=== PATIENT | female | born 1955 ===

== ENCOUNTER 2017-05-04 12:56 | Inpatient (IN) | payer OTHER ==
[~2017-05-04] VITALS: Ht 167.6 cm; Wt 63.0 kg
--- NOTE | ~2017-05-04 | PR ---
[place], [place] PROGRESS NOTE NAME: [id number] UNIT #: [id number] ROOM: 316 DOCTOR: Isabel BLAND,ABDIRIZAK BIRTHDATE: [birth year] DOS: 05/06/2017 SUBJECTIVE: The patient seen and spoke with the staff. Per staff, the patient was keeping on asking for Xanax and Ativan. She did not sleep last night up until 2:00 a.m., but then fell asleep. She is taking her medication regularly and did not have any side effects. The patient was pleasant, cooperative. She was actually in her bed. She talked about not able to sleep. She was indirectly asking for the benzodiazepine that she was getting. I told her that she is not going to get any of the benzos, which is not good for her. She reported poor sleep. I encouraged her to get up from the bed and go to the day area. She was upset when I told her yesterday, but today she seems to acknowledge that and willing to go to the day area. She said that she still feels depressed and feels had passive wish. Denied any side effect from the medication. MENTAL STATUS EXAMINATION: The patient was pleasant and cooperative. Described her mood as "down." Affect was flat. Thought process goal directed. No flight of ideas, loosening of associations. She denied audiovisual hallucination. No delusion or paranoia noted. She had passive wish. Denied any homicidal ideation, intent or plan. Insight and judgment poor to fair. ASSESSMENT: 1. Bipolar disorder, depressed type. 2. Generalized anxiety disorder. PLAN: 1. Continue current medication and care. 2. Continue redirection. 3. Supportive care. ABDIRIZAK BLAND MD CM:ASHLEY [phone] Isabel BLAND 05/07/17 0133 interface
--- NOTE | ~2017-05-04 | DS ---
[place], [place] DISCHARGE SUMMARY NAME: RANDAL VALENCIA UNIT #: [id number] ROOM: 316 DOCTOR: DOROTA BURK BIRTHDATE: [birth year] DOS: 05/18/2017 CHIEF COMPLAINT: "I slept like a baby." HISTORY OF PRESENT ILLNESS: She is a 61-year-old white female who was pink slipped to the Behavioral [facility] Unit from [facility] because she was having suicidal ideation. She does have a long-standing history of mental illness as well as cirrhosis of the liver. She voiced suicidal thoughts at [facility], was taken to [facility] and was stabilized and then sent to the Behavioral Health Unit for further medication management. PAST MEDICAL HISTORY: Includes cirrhosis of the liver, hepatitis B and E, hypertension. She has a history of suicidal ideation and she is a smoker. ALLERGIES: She is allergic to PENICILLIN, IODINE, CODEINE and ACETAMINOPHEN. SUMMARY OF HOSPITAL COURSE: When she came in, her ammonia level was elevated. Her lactulose was increased. It ultimately increased to 40 grams daily and as of today her ammonia level has increased significantly to 49. During her stay, she also complained of some nausea and decreased appetite. She was on Vistaril and she was on Periactin. Those were discontinued and she was started on Remeron to treat the upset stomach and to try and increase her appetite. The Remeron was titrated to 22.5 mg and last night she reports that she slept very well. Her mood and affect are appropriate today. She has voiced no suicidal ideations. MENTAL STATUS AT DISCHARGE: She is alert and oriented. She does have some short term memory gaps. Mood and affect are euthymic and appropriate. She has had no overt audio or visual hallucinations. No delusions. No paranoia. She is experiencing no EPS or TD. DIAGNOSES: Major depressive disorder with suicidal ideation. DISPOSITION: She will be discharged home. Her scripts have been printed and will be sent with her on discharge. She is in psychiatrically stable condition. [place], [place] DISCHARGE SUMMARY NAME: RANDAL VALENCIA UNIT #: [id number] ROOM: 316 DOCTOR: DOROTA BURK BIRTHDATE: [birth year] Dorota Burk, [employer] CM:DISCHARG [phone] DOROTA BURK 05/18/172247 interface
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
--- NOTE | ~2017-05-04 | PR ---
[place], [place] PROGRESS NOTE [facility]: [id number] UNIT #: [id number] ROOM: 316 DOCTOR: Isabel BLAND,ABDIRIZAK BIRTHDATE: [birth year] DOS: 05/08/2017 SUBJECTIVE: The patient seen and spoke with the staff. Per staff, the patient did not sleep at all last night. She was hallucinating. Seems like the Ambien which caused her to hallucinate. The patient was in the day area. She looks tired. She talked about her experience of hallucination and not able to sleep. She said that she is doing good mood-guzman, but sleep is an issue. MENTAL STATUS EXAMINATION: The patient was pleasant, cooperative. Described her mood as "okay." Affect, mood congruent. Thought process goal directed. No flight of ideas, loosening of associations. She denied any auditory or visual hallucination now. No delusions or paranoia noted. She denied suicidal ideation, intent or plan. She also denied homicidal ideation, intent or plan. ASSESSMENT: Bipolar disorder, depressed type. PLAN: 1. I will discontinue her Ambien. 2. I will increase her Zyprexa to 20 mg at night. 3. Continue redirection. 4. Supportive care. ABDIRIZAK BLAND MD CM:ASHLEY [id number] Isabel BLAND 05/08/17 1334 interface
--- NOTE | ~2017-05-04 | PR ---
[place], [place] PROGRESS NOTE [id number] UNIT #: [id number] ROOM: 316 DOCTOR: Isabel BLAND,ABDIRIZAK BIRTHDATE: [birth year] DOS: 05/05/2017 PSYCHIATRIC PROGRESS NOTE SUBJECTIVE: The patient seen and spoke with the staff. Per staff, the patient did not sleep last night at all and reported racing thoughts. She took all of her medication and got p.r.n. Ativan. The patient was in her room. She talked about not sleeping. She did not want any other medication. She denied any side effects. She still had fleeting suicidal thoughts, but no intent or plan. Denied any psychotic symptoms. MENTAL STATUS EXAMINATION: The patient was pleasant, cooperative. Described her mood as "okay." Affect broad range. Thought process goal directed. No flight of ideas, loosening of association. She denied auditory or visual hallucination. No delusion or paranoia noted. She had fleeting suicidal ideation, but no intent or plan. Denied homicidal ideation, intent or plan. Insight and judgment fair. ASSESSMENT: Bipolar disorder, depressed type. PLAN: 1. I will increase Zyprexa to 50 mg at night. 2. Continue other medications. 3. Continue redirection. 4. Supportive care. ABDIRIZAK BLAND MD CM:PNTRANS [id number] Isabel BLAND 05/05/17 1036 interface
--- NOTE | ~2017-05-04 | PR ---
[place], [place] PROGRESS NOTE NAME: [id number] UNIT #: [id number] ROOM: 316 DOCTOR: Isabel BLAND,ABDIRIZAK BIRTHDATE: [birth year] DOS: 05/09/2017 PSYCHIATRIC PROGRESS NOTE SUBJECTIVE: The patient seen and spoke with the staff. Per staff, the patient was hallucinating yesterday. Slept only 4 hours and a very hard to redirect. The patient was pleasant and cooperative. She said that she is feeling better today, but usually she was feeling her head "don't want to stop," speedy all the time. She talked about poor sleep, but denied any auditory or visual hallucination right now. She said that she is feeling better mood guzman, but she cannot stop her mind racing. She denied any side effect from the medication. It should be noted that her labs were drawn and her ammonia level came back normal. MENTAL STATUS EXAMINATION: The patient was pleasant, cooperative. She was alert, oriented to date, month and year. Speech was normal volume and tone. Described her mood as "okay." Affect, mood congruent. Thought process goal directed. No flight of ideas, loosening of association. She denied auditory or visual hallucination. No delusion or paranoia noted. She denied any suicidal ideation, intent or plan. She also denied any homicidal ideation, intent or plan. ASSESSMENT: Bipolar disorder, depressed type. PLAN: 1. I will discontinue her BuSpar. 2. I will start her on clonazepam 0.5 mg at night. 3. I will continue Zyprexa 20 mg at night. 4. Continue redirection. 5. Supportive care. ABDIRIZAK BLAND MD CM:ASHLEY 06 [phone] Isabel BLAND 05/10/171845 interface
--- NOTE | ~2017-05-04 | PR ---
[place], [place] PROGRESS NOTE NAME: RANDAL VALENCIA [facility] #: [id number] UNIT #: [id number] ROOM: 316 DOCTOR: Isabel BLAND,ABDIRIZAK BIRTHDATE: [birth year] DOS: 05/11/2017 SUBJECTIVE: The patient seen and spoke with the staff. Per staff, the patient slept well and coming to the nursing station and asking for anxiety medication, seems to be medication seeking. The patient was pleasant, cooperative. She was in the day area, looks happier to me, but when I asked her how she is doing, she said that she is not doing well. Claims that she did not sleep last night. When I told her that this is not the nurses said, she became upset and she said that nurses were lying. She reports doing well otherwise. Denied depressed mood or hopelessness, but reports being anxious. I discussed with her about the risk of the medication that she was on. She was concerned about sleeping at night. I told her that I will put her on Ambien 5 mg at night as needed. MENTAL STATUS EXAMINATION: The patient was pleasant, cooperative. Described her mood as "okay". Affect, mood congruent. Thought process goal directed. No flight of ideas or loosening of association. She denied auditory or visual hallucination. No delusion or paranoia noted. She denied suicidal ideation, intent or plan. She also denied homicidal ideation, intent or plan. ASSESSMENT: Bipolar disorder, depressed type. PLAN: 1. Continue current medication and care. 2. I will add Ambien 5 mg at night as needed for insomnia. 3. Supportive care. ABDIRIZAK BLAND MD CM:ASHLEY [id number] Isabel BLAND 05/12/17 0536 interface
--- NOTE | ~2017-05-04 | PR ---
[place], [place] PROGRESS NOTE [id number] UNIT #: [id number] ROOM: 316 DOCTOR: Isabel BLAND,ABDIRIZAK BIRTHDATE: [birth year] DOS: 05/13/2017 SUBJECTIVE: The patient seen and spoke with the staff. Per staff, the patient slept only 3 hours and asking for medication and other things in the middle of the night. She took her medication. No other behavioral problems or issues. When I went to the patient's room, she was sleeping. She barely woke up and said that she is doing well. Did not express any concerns to me, seems to be not in any kind of distress. MENTAL STATUS EXAMINATION: The patient was pleasant and cooperative, sleepy. Described her mood as "okay," does not seem to be internally stimulated. Not in any distress, not able to do the full mental status examination as the patient was in deep sleep. ASSESSMENT: Bipolar disorder, depressed type. PLAN: 1. Continue current medications and care. 2. Continue redirection. 3. Encourage activity and groups. ABDIRIZAK BLAND MD CM:ASHLEY [id number] Isabel BLAND 05/13/17 1046 interface
--- NOTE | ~2017-05-04 | PR ---
[place], [place] PROGRESS NOTE NAME[facility] [id number] UNIT #: [id number] ROOM: 316 DOCTOR: Isabel BLAND,ABDIRIZAK BIRTHDATE: [birth year] DOS: 05/12/2017 SUBJECTIVE: The patient seen and spoke with the staff. Per staff, the patient is doing well. No behavioral problems or issues, slept 8 hours per staff, but reportedly the patient claims that she did not sleep well at all. She is medication compliant and med seeking. When I went to see the patient, she was sleeping deep in her room, not able to wake her up and since sleep is an issue for the patient, I did it deliberately . I actually did not want to wake her up also. The patient seems to be breathing and not in any kind of distress. MENTAL STATUS EXAMINATION: Not able to do the mental status examination as the patient was in deep sleep. ASSESSMENT: Bipolar disorder, depressed type. PLAN: 1. Continue current medication and care. 2. Continue redirection. 3. Encourage activity and groups. ABDIRIZAK BLAND MD CM:ASHLEY 27 Isabel BLAND 05/12/17 182 interface
--- NOTE | ~2017-05-04 | PR ---
[place], [place] PROGRESS NOTE [id number] UNIT #: [id number] ROOM: 316 DOCTOR: Isabel BLAND,ABDIRIZAK BIRTHDATE: [birth year] DOS: 05/10/2017 PSYCHIATRIC PROGRESS NOTE SUBJECTIVE: The patient seen and spoke with the staff. Per staff, the patient is doing well and no behavioral problems or issues. Medication compliant and she slept well last night. No psychotic episodes. The patient was pleasant and cooperative. She was in her bed. When I called her name, she woke up and she said that she slept like a baby. She seems very happy. She said that she did not have any psychotic experiences that she had night before. She denied any side effect from the medication, also denied being anxious or depressed. MENTAL STATUS EXAMINATION: The patient was pleasant and cooperative, described her mood as "great." Affect, mood congruent. Thought process goal directed. No flight of ideas or loosening of association. She denied auditory or visual hallucination. No delusion or paranoia noted. She denied suicidal ideation, intent or plan. She also denied any homicidal ideation, intent or plan. Insight and judgment fair. ASSESSMENT: Bipolar disorder, depressed type. PLAN: 1. Continue current medication and care. 2. Continue redirection. 3. Supportive care. 4. Discharge planning. ABDIRIZAK BLAND MD CM:ASHLEY 0744 Isabel BLAND 05/10/17 2317 interface
--- NOTE | ~2017-05-04 | PR ---
[place], [place] PROGRESS NOTE [id number] UNIT #: [id number] ROOM: 316 DOCTOR: Isabel BLAND,ABDIRIZAK BIRTHDATE: [birth year] DOS: 05/07/2017 PSYCHIATRIC PROGRESS NOTE SUBJECTIVE: The patient seen and spoke with the staff. Per staff, the patient is still very somatic, slept 8 hours, took all of her medications. No behavioral problems or issues. The patient looks brighter to me. She was in the day area. When I asked her how she is doing, she complains about poor sleep, even though when I told her that as per nursing staff, she slept all night, she said that she does not remember like that. She denied any other problems or issues. She denied any side effect from the medication. She claims that her mood is a little bit better. MENTAL STATUS EXAMINATION: The patient was pleasant, cooperative, described her mood as "better." Affect, mood congruent. Thought process goal directed. No flight of ideas or loosening of association. She denied auditory or visual hallucination. No delusion or paranoia noted. She denied suicidal ideation, intent or plan. She also denied homicidal ideation, intent or plan. Insight and judgment fair. ASSESSMENT: 1. Bipolar disorder, depressed type. 2. Generalized anxiety disorder. PLAN: 1. I will continue her current Zyprexa and BuSpar. 2. I will increase her Ambien to 10 mg at night as needed for sleep. 3. Continue redirection. 4. Supportive care. ABDIRIZAK BLAND MD CM:ASHLEY [phone] Isabel BLAND 05/08/17 1309 interface
--- NOTE | ~2017-05-04 | PR ---
[place], [place] PROGRESS NOTE NAME[facility] [id number] UNIT #: [id number] ROOM: 316 DOCTOR: BREANNE NAVARRO MD BIRTHDATE: [birth year] DOS: 05/16/2017 CHIEF COMPLAINT: "I didn't sleep well, I don't feel well. I am nauseated." SUMMARY OF THE VISIT: The patient was interviewed as she rested quietly in bed. She reported that she had a fitful night sleep, tossing and turning throughout the night. She does complain of feeling nauseated. The nausea is intermittent and comes and goes throughout the day, that is not related to the presence or absence of food. Mood guzman she continues to complain of being depressed and is flat and blunted. MENTAL STATUS: She is alert and oriented with mild time gaps. Mood does seem to be depressed. Affect is rather flat and blunted. There is no symptom suggestive of hypomania or brittany. There are no overt auditory or visual hallucinations, delusions or paranoia. Memory seems fairly intact. PLAN: I will attempt to simplify her drug regimen. At this point, I will maximize out the dose of Zyprexa from 15 to 20 mg at bedtime. I will discontinue Periactin and hydroxyzine as both seem to be redundant and ineffective. I will add Remeron 15 mg at bedtime, not only as an antidepressant, but as a sleep and appetite aid. Both the Zyprexa and the Remeron have antiemetic properties and should settle her stomach and help decrease some of her nausea. We will engage in individual and novoa milieu activity with the ultimate plan to return home when psychiatrically stable. BREANNE NAVARRO MD CM:PNTRANS 3 BREANNE NAVARRO MD 05/16/17923 interface
[~2017-05-04 12:56] MED LIST: GOOD NEIGHBOR P20 MG PO
[2017-05-04] MEDS ORDERED: ALPRAZOLAM0.5 M3 PO (13:35)
[2017-05-04] MEDS ORDERED: ZOLPIDEM TART5 MG PO (13:36)
[2017-05-04] MEDS ORDERED: PERIACTIN4 MG PO (13:37)
[2017-05-04] MEDS ORDERED: Kenalog 0.5% Cr15 GM T (13:38)
[2017-05-04] MEDS ORDERED: CLARITIN10 MG PO (13:38)
[2017-05-04] MEDS ORDERED: OLANZAPINE10 MG PO (13:39)
[2017-05-04] MEDS ORDERED: ALDACTONE25 M1 PO (13:40)
[2017-05-04] MEDS ORDERED: PROPRANOLOL HCL10 MG PO (13:40)
[2017-05-04] MEDS ORDERED: ESTRACE 0.01%42.5 GM V (13:41)
[2017-05-04] MEDS ORDERED: CONSTULOSE10 GM/151 PO (13:42)
[2017-05-04 15:01] VITALS: BP 107/70
[2017-05-04] MEDS ORDERED: XIFAXAN550 MG PO (15:45)
[2017-05-04 20:00] VITALS: BP 109/66
[2017-05-05 07:09] LABS: BASO # 0.1 10*3/uL (0.0-0.1); BASO % 1.1 % (0.0-1.0); EOS # 0.1 10*3/uL (0.0-0.4); EOS % 2.3 % (1.0-4.0); HEMOGLOBIN 14.3 g/dl (12.0-16.0); LYMPH # 2.3 10*3/uL (1.3-4.4); LYMPH % 40.6 % (27.0-41.0); MEAN CORPUSCULAR HGB 32.4 pg (27.0-31.0); MEAN PLATELET VOLUME 13.7 fl (9.6-12.3); MONO # 0.5 10*3/uL (0.1-1.0); MONO % 8.1 % (3.0-9.0); NEUT # 2.7 10*3/uL (2.3-7.9); NEUT % 47.7 % (47.0-73.0); PLATELET COUNT AUTOMATED 105 10*3/uL (130-400); RED BLOOD COUNT 4.42 10*6/uL (4.10-5.10); WHITE BLOOD COUNT 5.7 10*3/uL (4.8-10.8)
[2017-05-05 07:38] LABS: ALBUMIN 3.6 gm/dl (3.1-4.5); ALKALINE PHOSPHATASE 160 U/L (45-117); BUN 13 mg/dl (7-24); CHLORIDE 109 mmol/L (98-107); CHOLESTEROL 137 mg/dL (<200); CREATININE 0.68 mg/dL (0.55-1.02); HDL CHOLESTEROL 34 mg/dl (40-60); LDL CHOLESTEROL 85 mg/dL (9-159); POTASSIUM 3.8 mmol/L (3.5-5.1); SGOT/AST 42 IU/L (3-35); SGPT/ALT 46 U/L (12-78); SODIUM 143 mmol/L (136-145); TRIGLYCERIDES 89 mg/dl (<150); VLDL CHOLESTEROL 18 mg/dL (6-40)
[2017-05-05 08:28] VITALS: BP 104/87
[2017-05-05 08:33] LABS: VITAMIN D, 25-HYDROXY 24.5 ng/mL (30-100)
[2017-05-05 10:49] LABS: BILIRUBIN NEGATIVE (NEGATIVE); BLOOD TRACE-INTACT (NEGATIVE); CLARITY CLEAR (CLEAR); COLOR YELLOW (YELLOW); GLUCOSE NEGATIVE (NEGATIVE); KETONE NEGATIVE (NEGATIVE); LEUKO ESTERASE NEGATIVE (NEGATIVE); NITRITE NEGATIVE (NEGATIVE); UROBILINOGEN 0.2 E.U./dl (0.2-1.0)
[2017-05-05 11:01] LABS: BACTERIA TRACE
[2017-05-05 19:57] VITALS: BP 102/67
[2017-05-06 08:00] VITALS: BP 124/80
[2017-05-06 20:30] VITALS: BP 136/82
[2017-05-07 10:46] VITALS: BP 130/83
[2017-05-07 20:22] VITALS: BP 150/92
[2017-05-07 21:40] VITALS: BP 126/84
[2017-05-08 03:29] VITALS: BP 147/89
[2017-05-08 08:09] VITALS: BP 104/81
[2017-05-08 08:32] VITALS: BP 110/58
[2017-05-08 20:06] VITALS: BP 110/66
[2017-05-09 08:55] VITALS: BP 109/69
[2017-05-09 20:15] VITALS: BP 110/78
[2017-05-10 07:58] VITALS: BP 100/71; BP 138/62
[2017-05-10 12:23] VITALS: BP 122/78
[2017-05-10 19:47] VITALS: BP 104/69
[2017-05-11 08:01] VITALS: BP 111/68
[2017-05-11 20:11] VITALS: BP 120/71
[2017-05-12 08:07] VITALS: BP 118/68
[2017-05-12 19:56] VITALS: BP 121/74
[2017-05-13 07:58] VITALS: BP 132/72
[2017-05-13 19:55] VITALS: BP 111/60
[2017-05-14 08:05] VITALS: BP 115/66
[2017-05-14 08:08] VITALS: BP 115/66
[2017-05-14 20:08] VITALS: BP 136/64
[2017-05-15 07:34] LABS: BASO % 0.6 % (0.0-1.0); EOS # 0.2 10*3/uL (0.0-0.4); EOS % 2.4 % (1.0-4.0); HEMATOCRIT 40.7 % (37.0-47.0); HEMOGLOBIN 13.9 g/dl (12.0-16.0); LYMPH # 2.7 10*3/uL (1.3-4.4); LYMPH % 40.6 % (27.0-41.0); MEAN CELL VOLUME 96.9 fl (81.0-99.0); MEAN CORPUSCULAR HGB 33.1 pg (27.0-31.0); MEAN CORPUSCULAR HGB CONC 34.2 g/dl (33.0-37.0); MEAN PLATELET VOLUME 13.8 fl (9.6-12.3); MONO # 0.6 10*3/uL (0.1-1.0); NEUT # 3.1 10*3/uL (2.3-7.9); NEUT % 46.9 % (47.0-73.0); PLATELET COUNT AUTOMATED 128 10*3/uL (130-400); RED CELL DISTRI WIDTH 13.2 % (0-14.5); WHITE BLOOD COUNT 6.6 10*3/uL (4.8-10.8)
[2017-05-15 07:50] LABS: ALBUMIN 3.2 gm/dl (3.1-4.5); ALKALINE PHOSPHATASE 164 U/L (45-117); BUN 16 mg/dl (7-24); CHLORIDE 112 mmol/L (98-107); CREATININE 0.79 mg/dL (0.55-1.02); SGOT/AST 53 IU/L (3-35); SGPT/ALT 69 U/L (12-78); SODIUM 144 mmol/L (136-145); TOTAL PROTEIN 6.9 gm/dL (6.4-8.2)
[2017-05-15 09:27] VITALS: BP 102/82
[2017-05-15 20:00] VITALS: BP 122/72
[2017-05-16 07:54] VITALS: BP 117/73
[2017-05-16 19:38] VITALS: BP 141/70
[2017-05-17 07:23] LABS: BASO # 0.1 10*3/uL (0.0-0.1); BASO % 1.1 % (0.0-1.0); EOS # 0.2 10*3/uL (0.0-0.4); EOS % 2.2 % (1.0-4.0); HEMATOCRIT 44.9 % (37.0-47.0); HEMOGLOBIN 15.4 g/dl (12.0-16.0); LYMPH # 2.2 10*3/uL (1.3-4.4); LYMPH % 29.2 % (27.0-41.0); MEAN CELL VOLUME 96.4 fl (81.0-99.0); MEAN CORPUSCULAR HGB CONC 34.3 g/dl (33.0-37.0); MEAN PLATELET VOLUME 13.2 fl (9.6-12.3); MONO # 0.7 10*3/uL (0.1-1.0); MONO % 9.4 % (3.0-9.0); NEUT # 4.3 10*3/uL (2.3-7.9); NEUT % 57.7 % (47.0-73.0); PLATELET COUNT AUTOMATED 130 10*3/uL (130-400); RED BLOOD COUNT 4.66 10*6/uL (4.10-5.10); WHITE BLOOD COUNT 7.4 10*3/uL (4.8-10.8)
[2017-05-17 07:36] LABS: ALBUMIN 3.6 gm/dl (3.1-4.5); ALKALINE PHOSPHATASE 181 U/L (45-117); BUN 14 mg/dl (7-24); CHLORIDE 112 mmol/L (98-107); CREATININE 0.71 mg/dL (0.55-1.02); POTASSIUM 4.1 mmol/L (3.5-5.1); SGOT/AST 62 IU/L (3-35); SGPT/ALT 88 U/L (12-78); SODIUM 142 mmol/L (136-145); TOTAL PROTEIN 7.8 gm/dL (6.4-8.2)
[2017-05-17 08:05] VITALS: BP 122/81
[2017-05-17 20:25] VITALS: BP 110/58
[2017-05-18 08:12] VITALS: BP 93/68
[2017-05-18 08:13] VITALS: BP 98/72
[2017-05-18] MEDS ORDERED: MIRTAZAPINE45 MG PO (09:22)
[2017-05-18] MEDS ORDERED: Vitamin D PO (09:22)
[2017-05-18] MEDS ORDERED: OLANZAPINE10 MG PO (09:22)
[2017-05-18] MEDS ORDERED: LACTULOSE20 GM/30 M PO (11:31)
== END 2017-05-18 14:50 | disposition home or self-care (01) | DRG 885 ==
LOC: 3N 12:56
PROVIDERS: Psychiatry & Neurology Psychiatry; Registered Nurse; ADMIT Psychiatry & Neurology Psychiatry
DX: F31.4 Bipolar disorder, current episode depressed, severe, without psychotic features (principal); E72.4 Disorders of ornithine metabolism; E44.0 Moderate protein-calorie malnutrition; K74.60 Unspecified cirrhosis of liver; R45.851 Suicidal ideations; B19.10 Unspecified viral hepatitis B without hepatic coma; F41.1 Generalized anxiety disorder; I10 Essential (primary) hypertension; B18.2 Chronic viral hepatitis C; F17.210 Nicotine dependence, cigarettes, uncomplicated; E55.9 Vitamin D deficiency, unspecified; Z68.22 Body mass index [BMI] 22.0-22.9, adult; Z71.6 Tobacco abuse counseling; Z86.73 Personal history of transient ischemic attack (TIA), and cerebral infarction without residual deficits; Z87.81 Personal history of (healed) traumatic fracture; Z88.0 Allergy status to penicillin; Z88.5 Allergy status to narcotic agent; Z88.8 Allergy status to other drugs, medicaments and biological substances; Z82.49 Family history of ischemic heart disease and other diseases of the circulatory system; Z80.1 Family history of malignant neoplasm of trachea, bronchus and lung